=== PATIENT | male | born 1980 | race Caucasian/White ===

== ENCOUNTER 2016-06-03 08:10 | Inpatient (IN) | payer BC ==
[~2016-06-03] VITALS: Ht 175.3 cm; Wt 87.3 kg
[~2016-06-03 08:10] MED LIST: ASPIRIN81 M2 PO; CEFDINIR300 MG PO; KEFLEX500 MG PO; LANTUS 3 M100 UNITS1 SC; LIPITOR80 MG PO; LYRICA100 MG PO; MIRALAX255 GM PO; MOTRIN600 MG PO; MVI; NORCO 7.5/321 TABLET PO; NOVOLOG PE100 UNITS/ SC; ONE DAILY FOR1 EACH PO; PERCOCET 5/31 TABLET PO; VITAMIN B-150 MG PO
[2016-06-03 08:25] LABS: POINT-OF-CARE METER ID UU13113778
[2016-06-03 08:46] LABS: HEMATOCRIT 44.9 % (38.0-50.0); MCH 28.2 PG (29.0-34.0); MCHC 33.2 G/DL (30.0-36.0); MEAN PLAT.VOLUME 10.9 uM^3 (9.0-12.4); PLATELET COUNT 247 K/uL (156-360); RBC DIS.WIDTH-CV 11.9 % (11.8-14.6); RBC DIS.WIDTH-SD 36.3 % (39-53); RED BLOOD COUNT 5.28 M/uL (4.00-5.50)
[2016-06-03 08:59] LABS: CHLORIDE 106 mEq/L (99-109); POTASSIUM 4.5 mEq/L (3.7-5.4); SODIUM 137 mEq/L (136-147)
[2016-06-03 09:01] LABS: GLUCOSE 296 mg/dL (70-99)
[2016-06-03 09:02] LABS: ANION GAP 18 MEQ/L (2-14)
[2016-06-03 09:03] LABS: TOTAL BILIRUBIN 0.9 mg/dL (0.0-1.0)
[2016-06-03 09:05] LABS: ALKALINE PHOSPHATASE 84 IU/L (3-129); GFR ESTIMATE (CALCULATED) > 59 mL/min/
[2016-06-03 09:06] LABS: UREA NITROGEN (BUN) 25 mg/dL (9-23)
[2016-06-03 09:08] LABS: LIPASE 11 U/L (1.0-51.0)
[2016-06-03 09:19] LABS: ADD MIUA? NO; BILIRUBIN NEGATIVE; BLOOD NEGATIVE; COLOR STRAW ((YELLOW)); GLUCOSE (STRIP) >=500; KETONES 80; LEUKOCYTES NEGATIVE; NITRITE NEGATIVE; PROTEIN (STRIP) NEGATIVE; SPECIFIC GRAVITY 1.024 (1.000-1.030); UCUL ADDED? NO; UROBILINOGEN 0.2 MG/DL (0.2-1.0)
[2016-06-03 10:40] LABS: CARBON DIOXIDE (BICARBONATE) 17.3 MEQ/L (20-31)
[2016-06-03 11:09] LABS: POINT-OF-CARE METER ID UU13113702
[2016-06-03 12:08] LABS: POINT-OF-CARE METER ID UU13113702; POINT-OF-CARE USER ID AHSDISBJH
[2016-06-03 12:53] LABS: CHLORIDE 109 mEq/L (99-109); POTASSIUM 4.5 mEq/L (3.7-5.4); SODIUM 137 mEq/L (136-147)
[2016-06-03 12:54] LABS: GLUCOSE 199 mg/dL (70-99)
[2016-06-03 12:56] LABS: ANION GAP 11 MEQ/L (2-14)
[2016-06-03 12:58] LABS: GFR ESTIMATE (CALCULATED) > 59 mL/min/
[2016-06-03 12:59] LABS: UREA NITROGEN (BUN) 21 mg/dL (9-23)
[2016-06-03] MEDS ORDERED: INSULIN PUMP SCCONT (16:04)
[2016-06-03 16:06] LABS: POINT-OF-CARE METER ID UU13113702
[2016-06-03 16:30] VITALS: BP 129/83
[2016-06-03 18:20] LABS: ANION GAP 8 MEQ/L (2-14); CHLORIDE 112 MEQ/L (99-109); GFR ESTIMATE (CALCULATED) > 59 mL/min/; POTASSIUM 4.2 MEQ/L (3.7-5.4); SAMPLE HEMOLYSIS CHECK 0; SAMPLE ICTERIC CHECK 0; SAMPLE LIPEMIA CHECK 0; SODIUM 140 MEQ/L (136-147); UREA NITROGEN (BUN) 17 mg/dL (9-23)
[2016-06-03 18:22] LABS: GLUCOSE 109 mg/dL (70-99)
[2016-06-03 19:45] VITALS: BP 129/71
[2016-06-04 00:06] VITALS: BP 126/73
[2016-06-04 03:40] VITALS: BP 129/70
[2016-06-04 07:07] LABS: HEMATOCRIT 36.9 % (38.0-50.0); MCHC 33.9 G/DL (30.0-36.0); MCV 85.6 FL (86-99); MEAN PLAT.VOLUME 11.1 uM^3 (9.0-12.4); PLATELET COUNT 184 K/uL (156-360); RBC DIS.WIDTH-CV 12.1 % (11.8-14.6); RBC DIS.WIDTH-SD 37.9 % (39-53); RED BLOOD COUNT 4.31 M/uL (4.00-5.50); WHITE BLOOD COUNT 7.8 K/uL (4.1-10.2)
[2016-06-04 07:20] LABS: ANION GAP 7 MEQ/L (2-14); CHLORIDE 109 MEQ/L (99-109); GFR ESTIMATE (CALCULATED) > 59 mL/min/; GLUCOSE 100 mg/dL (70-99); POTASSIUM 3.8 MEQ/L (3.7-5.4); SAMPLE HEMOLYSIS CHECK 0; SAMPLE ICTERIC CHECK 0; SAMPLE LIPEMIA CHECK 0; SODIUM 139 MEQ/L (136-147); UREA NITROGEN (BUN) 14 mg/dL (9-23)
[2016-06-04 08:10] VITALS: BP 123/76
[2016-06-04 11:30] LABS: POINT-OF-CARE USER ID NUTSLF44
[2016-06-04 11:31] VITALS: BP 115/67
[2016-06-04 15:22] VITALS: BP 138/80
[2016-06-04 18:20] LABS: ANION GAP 7 MEQ/L (2-14); CHLORIDE 108 MEQ/L (99-109); GFR ESTIMATE (CALCULATED) > 59 mL/min/; GLUCOSE 145 mg/dL (70-99); POTASSIUM 3.5 MEQ/L (3.7-5.4); SAMPLE HEMOLYSIS CHECK 0; SAMPLE ICTERIC CHECK 0; SAMPLE LIPEMIA CHECK 0; SODIUM 141 MEQ/L (136-147); UREA NITROGEN (BUN) 11 mg/dL (9-23)
== END 2016-06-04 18:42 | disposition home or self-care (01) | DRG 639 ==
LOC: EME 08:10 → 4EAST 15:26 → EDOF 15:26 → 4EAST 16:18
PROVIDERS: Emergency Medicine; Internal Medicine; Physician Assistant Medical
DX: E13.10 Other specified diabetes mellitus with ketoacidosis without coma (principal); E13.319 Other specified diabetes mellitus with unspecified diabetic retinopathy without macular edema; Z79.4 Long term (current) use of insulin; E78.5 Hyperlipidemia, unspecified
CPT/HCPCS: 74177; 80048; 80048 91; 80053; 81003; 82010; 82803; 82948; 83690; 85027; 99281; 99285; J1170; J1815; J7030; J7050; J7120